=== PATIENT | female | born 1940 | race Caucasian/White ===

== ENCOUNTER 2021-10-22 17:05 | Observation (INO) | payer MEDICARE ==
[2021-10-22 17:37] LABS: #Eosinphils 0.3 10x3/uL (0.0-0.5); #Monocytes 0.7 10x3/uL (0.0-1.1); #Neutrophils 3.5 10x3/uL (1.5-8.4); %Basophils 0.4 % (0.0-2.0); %Eosinophils 3.7 % (0.0-6.0); %Lymphocytes 44.5 % (18.0-47.0); %Monocytes 8.5 % (0.0-10.0); %Neutrophils 42.8 % (40.0-75.0); Hemoglobin 13.6 g/dL (12.0-15.5); Mean Corpuscular Hemoglobin 30.7 pg (27.0-33.0); Mean Corpuscular Volume 90.3 fl (81.6-98.3); Mean Platelet Volume 10.1 fl (7.4-10.4); Platelet Count 242 10x3/uL (150-450); RBC Distribution Width 12.3 % (11.5-14.5); Red Blood Cell (RBC) Count 4.43 10x6/uL (3.90-5.03); White Blood Cell (WBC) Count 8.2 10x3/uL (3.5-10.5)
[2021-10-22 17:44] LABS: INR-International Normal Ratio 1.1; PTT 27.7 sec (22.0-33.0); Prothrombin Time 11.8 sec (9.5-12.1)
[2021-10-22 17:52] LABS: ALT (SGPT) 14 U/L (8-55); AST (SGOT) 11 U/L (5-34); Albumin 3.6 g/dL (3.4-4.8); Alkaline Phosphatase 104 U/L (40-110); Anion Gap 15 mmol/L (10-20); BUN (Urea Nitrogen) 19 mg/dL (9.8-20.1); Bilirubin, Total 1.4 mg/dL (0.2-1.2); CK (CPK) 20 U/L (29-168); Calc. Creatinine Clearance 0 mL/min (70-130); Calcium 8.8 mg/dL (7.8-10.44); Carbon Dioxide 25 mmol/L (23-31); Chloride 106 mmol/L (98-107); Globulin 2.3 g/dL (2.4-3.5); Glucose 234 mg/dL (83-110); Magnesium 1.8 mg/dL (1.6-2.6); Potassium 3.6 mmol/L (3.5-5.1); Protein, Total 5.9 g/dL (5.8-8.1); Sodium 142 mmol/L (136-145)
[2021-10-22] MEDS ORDERED: Metoprolol Tartrate 5 MG/5 ML VIAL ONE (18:27)
[2021-10-22] MEDS ORDERED: Acetaminophen 325 MG TAB PO PRN (19:16)
[2021-10-22] MEDS ORDERED: Ondansetron PF 4 MG/2 ML Vial IVP PRN (19:16)
[2021-10-22] MEDS ORDERED: Senokot S 8.6-50 MG TAB PO PRN (19:16)
[2021-10-22] MEDS ORDERED: Guaifenesin DM 100-10/5 ML UDCUP PO PRN (19:16)
[2021-10-22] MEDS ORDERED: Calcium Carbonate 500 MG ChewTAB PO PRN (19:16)
[2021-10-22] MEDS ORDERED: traZODone HCl 50 MG TAB PO PRN (19:20)
[2021-10-22] MEDS ORDERED: Dronedarone HCl 400 MG TAB PO SCH (19:30)
[2021-10-22 20:46] VITALS: BMI 38.0
[2021-10-22] MEDS ORDERED: Atorvastatin Calcium 40 MG TAB PO SCH (21:00)
[2021-10-22 21:45] LABS: Bilirubin Neg (Negative); Blood, Urine Negative (Negative); Clarity Slightly Cloudy (Clear); Glucose, Urine (Dipstick) Normal (Negative); Ketone, Urine Negative (Negative); Leukocyte 100 (Negative); Nitrite Negative (Negative); Protein, Urine (Dipstick) Negative (Neg-Trace); Specific Gravity, Urine 1.015 (1.002-1.036); Urobilinogen Normal mg/dL (Less than 2)
[2021-10-22] MEDS: Enoxaparin Sodium 100 MG/ML SYRINGE SC SCH (21:52)
[2021-10-22 21:55] LABS: Bacteria/HPF None Seen HPF (None Seen); Calcium Oxalate Crystals 3+ HPF (None Seen); RBC/HPF None Seen HPF (0-3); Squamous Epithelial 0-3 HPF (0-3)
[2021-10-23] MEDS ORDERED: cefTRIAXone\\ROCEPHIN 1 GM in Sodium Chloride 0.9% 100 ML IVPB SCH (05:00)
[2021-10-23 05:55] LABS: Anion Gap 12 mmol/L (10-20); BUN (Urea Nitrogen) 17 mg/dL (9.8-20.1); Calc. Creatinine Clearance 94 mL/min (70-130); Calcium 8.4 mg/dL (7.8-10.44); Carbon Dioxide 24 mmol/L (23-31); Chloride 110 mmol/L (98-107); Glucose 140 mg/dL (83-110); Magnesium 1.9 mg/dL (1.6-2.6); Potassium 3.4 mmol/L (3.5-5.1); Sodium 143 mmol/L (136-145)
[2021-10-23 06:14] LABS: Free T4 (Free Thyroxine) 1.09 ng/dL (0.70-1.48); Thyroid Stimulating Hormone 2.9331 uIU/mL (0.35-4.94)
[2021-10-23] MEDS ORDERED: Dronedarone HCl 400 MG TAB PO SCH (08:00)
[2021-10-23] MEDS ORDERED: Carvedilol 6.25 MG TAB PO SCH (08:00)
[2021-10-23] MEDS ORDERED: Potassium Chloride 20 MEQ TAB PO SCH (08:00)
[2021-10-23] MEDS: Enoxaparin Sodium 100 MG/ML SYRINGE SC SCH (08:48)
[2021-10-23] MEDS ORDERED: Magnesium Oxide 400 MG TAB PO SCH (09:00)
[2021-10-23] MEDS ORDERED: Lisinopril 5 MG TAB PO SCH (09:00)
[2021-10-23] MEDS ORDERED: Furosemide 20 MG TAB PO SCH (09:00)
[2021-10-23] MEDS ORDERED: Aspirin 81 mg Enteric Coated Tablet PO SCH (09:00)
[2021-10-23 12:13] VITALS: BP 138/60; TEMP 97.6
[2021-10-23 16:23] LABS: SARS-CoV-2 PCR by NAA Not Detected (NotDetected)
[2021-10-24] MEDS ORDERED: Potassium Chloride 20 MEQ TAB PO SCH (08:00)
== END 2021-10-23 15:59 | disposition home or self-care (01) ==
LOC: CSHERS 17:05 → CSHTELE 20:27
PROVIDERS: ADMIT Student in an Organized Health Care Education/Training Program; ATTEND Internal Medicine
DX: R07.89 Other chest pain (principal); I10 Essential (primary) hypertension; I25.10 Atherosclerotic heart disease of native coronary artery without angina pectoris; I25.5 Ischemic cardiomyopathy; I49.5 Sick sinus syndrome; E78.5 Hyperlipidemia, unspecified; Z95.0 Presence of cardiac pacemaker; I48.0 Paroxysmal atrial fibrillation; I25.2 Old myocardial infarction; F41.9 Anxiety disorder, unspecified; Z95.5 Presence of coronary angioplasty implant and graft; I48.92 Unspecified atrial flutter; Z85.3 Personal history of malignant neoplasm of breast; G47.33 Obstructive sleep apnea (adult) (pediatric); Z79.899 Other long term (current) drug therapy; Z79.82 Long term (current) use of aspirin; Z79.01 Long term (current) use of anticoagulants; Z20.822 Contact with and (suspected) exposure to COVID-19
CPT/HCPCS: 71045; 80048; 81001; 82550; 82962; 83735 ×2; 83880; 84439; 84443; 84484 ×3; 85610; 85730; 87086; 93005 ×2; 93306; 94760; 96372; 96374 ×2; 96375; 99285; G0378 ×3; U0003; U0005; 36415; 36416; 80053; 85025; 93010; J0696; J1650; J3490

== ENCOUNTER 2022-11-01 11:50 | Outpatient (CLI) | payer MEDICARE | END 2022-11-01 11:51 | disposition home or self-care (01) | LOC: CSHRAD 11:50 | PROVIDERS: ATTEND Family Medicine | DX: R05.9 Cough, unspecified (principal) | CPT/HCPCS: 71046 ==